=== PATIENT | female | born 1955 | race Caucasian/White ===

== ENCOUNTER 2021-08-17 06:51 | Day surgery (SDC) | payer MEDICARE ==
[2021-08-12 15:43] LABS: BASOPHILS % (AUTO) 1.1 % (0.0-5.0); EOSINOPHILS % (AUTO) 2.9 % (0.0-8.0); HEMATOCRIT 35.7 % (36-48); LYMPHOCYTES % (AUTO) 28.9 % (21.0-51.0); MEAN CORPUSCULAR HEMOGLOBIN 30.2 pg (27.0-33.0); MEAN CORPUSCULAR HGB CONC 33.3 g/dL (32.0-36.0); MEAN CORPUSCULAR VOLUME 90.6 fL (79-99); MONOCYTES % (AUTO) 6.4 % (3.0-13.0); NEUTROPHILS % (AUTO) 60.4 % (40.0-77.0); PLATELET COUNT (AUTO) 231 K/uL (130-400); RED BLOOD CELL COUNT(AUTO) 3.94 MIL/uL (4.00-5.50); RED CELL DISTRIBUTION WIDTH 12.2 % (11.0-15.5); WHITE BLOOD COUNT (AUTO) 8.7 K/uL (4.8-10.8)
[2021-08-12 15:44] LABS: APPEARANCE,URINE Clear (CLEAR); BILIRUBIN,URINE Negative (NEGATIVE); COLOR,URINE Yellow (YELLOW); GLUCOSE, URINE (UA) Negative (NEGATIVE); KETONES,URINE Negative (NEGATIVE); LEUKOCYTE ESTERASE ,URINE Negative (NEGATIVE); NITRATE,URINE Negative (NEGATIVE); OCCULT BLOOD,URINE Negative (NEGATIVE); PROTEIN,URINE Negative (NEGATIVE); UROBILINOGEN,URINE 0.2 mg/dL (0.2-1.0)
[2021-08-12 15:55] LABS: INR 1.01 (0.85-1.15)
[2021-08-12 15:57] LABS: PARTIAL THROMBOPLASTIN TIME 26.1 SEC (26.3-35.5)
[~2021-08-17] VITALS: Ht 157.5 cm; Wt 76.5 kg
[2021-08-17] VITALS (11 sets, daily range): BP systolic 110–150; BP diastolic 48–72
[~2021-08-17 06:51] MED LIST: ASPI-1443 PO; CALC-1125 PO; CLOP75TA14 PO; EVOL140S2 SQ; L.AC1CAP6 PO; NITR0.4T50 SL; OMEP40CA21 PO; [UNRECOGNIZED DRUG - CODE] NS; vitamin d PO
[2021-08-17] MEDS ORDERED: IOHEXOL 350 MG/ML 100ML INFUS..BTL IV ONE ×3 (07:41→08:59)
[2021-08-17] MEDS ORDERED: MIDAZOLAM HCL 1 MG/ML 2ML VIAL ONE (07:41)
[2021-08-17] MEDS ORDERED: NITROGLYCERIN 50MG VIAL ONE (07:41)
[2021-08-17] MEDS ORDERED: IOHEXOL-350 50ML VIAL IV ONE (07:41)
[2021-08-17] MEDS ORDERED: FENTANYL CITRATE PF 50 MCG/1 ML 2ML VIAL ONE (07:42)
[2021-08-17] MEDS ORDERED: LIDOCAINE HCL 400MG/20ML VIAL ONE (07:42)
[2021-08-17] MEDS ORDERED: SODIUM BICARB 50MEQ 50ML VIAL 50 ML ONE (08:09)
[2021-08-17] MEDS ORDERED: BIVALIRUDIN 250 MG/VIAL IV ONE (08:26)
[2021-08-17] MEDS: 0.9%NACL 1000ML 1,000 ML IV ONE (08:33)
[2021-08-17] MEDS ORDERED: HEPARIN 10,000 UNIT/10ML (1,000 UNIT/ML) VIAL ONE (09:03)
[2021-08-17] MEDS ORDERED: 0.9%NACL 1000ML 1,000 ML IV SCH (10:30)
[2021-08-17] MEDS: ACETAMINOPHEN 325 MG TAB ONE (13:16)
== END 2021-08-17 15:10 | disposition home or self-care (01) ==
LOC: DAH 06:51
PROVIDERS: ATTEND Internal Medicine Cardiovascular Disease
DX: I25.119 Atherosclerotic heart disease of native coronary artery with unspecified angina pectoris (principal); I25.729 Atherosclerosis of autologous artery coronary artery bypass graft(s) with unspecified angina pectoris; I25.82 Chronic total occlusion of coronary artery; I34.0 Nonrheumatic mitral (valve) insufficiency; K21.9 Gastro-esophageal reflux disease without esophagitis; I25.2 Old myocardial infarction; G47.33 Obstructive sleep apnea (adult) (pediatric); E78.5 Hyperlipidemia, unspecified; Z79.82 Long term (current) use of aspirin; Z79.01 Long term (current) use of anticoagulants; Z79.899 Other long term (current) drug therapy; Z98.890 Other specified postprocedural states; Z86.73 Personal history of transient ischemic attack (TIA), and cerebral infarction without residual deficits; Z95.1 Presence of aortocoronary bypass graft; Z95.5 Presence of coronary angioplasty implant and graft; Z90.49 Acquired absence of other specified parts of digestive tract; Z90.710 Acquired absence of both cervix and uterus; Z82.49 Family history of ischemic heart disease and other diseases of the circulatory system; Z72.89 Other problems related to lifestyle; Z88.8 Allergy status to other drugs, medicaments and biological substances; Z91.040 Latex allergy status
CPT/HCPCS: 36415; 71045; 80048; 81003; 85025; 85610; 85730; 92978; 92979; 93459; A4215; A4216; A4221; A4222; A4223 ×3; A4335; A4554; A4606; A4663; C1753 ×2; C1760 ×2; C1769 ×3; C1887; C1894 ×2; J1644 ×3; J2250; J3010; J3490 ×3; J7030; Q9965 ×3; Q9967 ×4; 93005; 99156; 99157; J0583

== ENCOUNTER → 2021-12-20 | Outpatient (CLI) | payer MEDICARE ==
[2021-12-20 12:28] LABS: BASOPHILS % (AUTO) 1.8 % (0.0-5.0); EOSINOPHILS % (AUTO) 5.7 % (0.0-8.0); LYMPHOCYTES % (AUTO) 28.8 % (21.0-51.0); MEAN CORPUSCULAR HEMOGLOBIN 28.7 pg (27.0-33.0); MEAN CORPUSCULAR HGB CONC 32.4 g/dL (32.0-36.0); MEAN CORPUSCULAR VOLUME 88.5 fL (79-99); MONOCYTES % (AUTO) 7.6 % (3.0-13.0); NEUTROPHILS % (AUTO) 55.8 % (40.0-77.0); PLATELET COUNT (AUTO) 246 K/uL (130-400); RED BLOOD CELL COUNT(AUTO) 4.18 MIL/uL (4.00-5.50); RED CELL DISTRIBUTION WIDTH 13.2 % (11.0-15.5); WHITE BLOOD COUNT (AUTO) 7.2 K/uL (4.8-10.8)
[2021-12-20 12:42] LABS: ALBUMIN 4.3 g/dL (3.5-5.0); BILIRUBIN,TOTAL 0.3 mg/dL (0.2-1.0); CREATININE 0.9 mg/dL (0.5-1.5); POTASSIUM 4.5 mmol/L (3.5-5.1); TOTAL PROTEIN, SERUM 7.7 g/dL (6.0-8.3)
== END | disposition home or self-care (01) ==
LOC: LAB 09:35
PROVIDERS: ATTEND Internal Medicine Cardiovascular Disease
DX: K59.00 Constipation, unspecified (principal); E78.5 Hyperlipidemia, unspecified; R06.00 Dyspnea, unspecified
CPT/HCPCS: 36415; 80053; 80061; 85025

== ENCOUNTER 2022-03-24 14:20 | Observation (INO) | payer MEDICARE ==
[~2022-03-24] VITALS: Ht 157.5 cm; Wt 67.8 kg
[2022-03-24 15:22] VITALS: BP 138/61
[2022-03-24 15:33] LABS: HEMATOCRIT 33.5 % (36-48); MEAN CORPUSCULAR HEMOGLOBIN 30.6 pg (27.0-33.0); MEAN CORPUSCULAR HGB CONC 33.7 g/dL (32.0-36.0); MEAN CORPUSCULAR VOLUME 90.8 fL (79-99); RED BLOOD CELL COUNT(AUTO) 3.69 MIL/uL (4.00-5.50); RED CELL DISTRIBUTION WIDTH 13.1 % (11.0-15.5); WHITE BLOOD COUNT (AUTO) 6.7 K/uL (4.8-10.8)
[2022-03-24 15:49] LABS: CREATININE 1.1 mg/dL (0.5-1.5); MAGNESIUM 2.2 mg/dL (1.80-2.40); POTASSIUM 3.9 mmol/L (3.5-5.1); TOTAL PROTEIN, SERUM 7.3 g/dL (6.0-8.3)
[2022-03-24 19:53] VITALS: BP 142/65
[2022-03-25] VITALS (14 sets, daily range): BP systolic 132–141; BP diastolic 57–69
[2022-03-25] MEDS ORDERED: FENTANYL CITRATE PF 50 MCG/1 ML 2ML VIAL ONE (07:08)
[2022-03-25] MEDS ORDERED: LIDOCAINE HCL-MPF 2% 10ML AMP IJ ONE (07:08)
[2022-03-25] MEDS ORDERED: IOHEXOL 350 MG/ML 100ML INFUS..BTL IV ONE ×2 (07:08→08:04)
[2022-03-25] MEDS ORDERED: MIDAZOLAM HCL 1 MG/ML 2ML VIAL ONE (07:08)
[2022-03-25] MEDS ORDERED: IOHEXOL-350 50ML VIAL IV ONE (07:08)
[2022-03-25] MEDS ORDERED: NITROGLYCERIN 50MG VIAL ONE (07:08)
[2022-03-25] MEDS ORDERED: SODIUM BICARB 50MEQ 50ML VIAL 50 ML ONE (07:43)
[2022-03-25] MEDS ORDERED: BIVALIRUDIN 250 MG/VIAL IV ONE (08:05)
[2022-03-25] MEDS ORDERED: LABETALOL 20MG SYG IV ONE ×3 (08:34→08:40)
[2022-03-25] MEDS ORDERED: CLOPIDOGREL 300MG TAB ONE (08:39)
[2022-03-25] MEDS ORDERED: ASPIRIN 325MG EC TAB PO ONE (08:39)
[2022-03-25] MEDS ORDERED: NITROGLYCERIN 4.1 GM SPRAY TL ONE (09:13)
[2022-03-25] MEDS ORDERED: 0.9% NACL 500ML IV.SOLN 500 ML IV SCH (09:30)
[2022-03-25] MEDS ORDERED: PHARMACY COMMUNICATION MISC SCH (10:30)
[2022-03-25] MEDS ORDERED: LIDO 2% VISC 30ML+MAG/AL/SIMETH 30ML+DICYCLOMINE 20MG 10ML PO SCH ×3 (11:00)
[2022-03-25] MEDS ORDERED: COMPOUND PO MISCELLANEOUS 1 EACH MISC MISC PRN (11:00)
[2022-03-25] MEDS ORDERED: BACLOFEN 10 MG TABLET PO SCH (13:56)
[2022-03-25] MEDS ORDERED: ACETAMINOPHEN 325 MG TAB PO SCH (14:00)
[2022-03-26] MEDS ORDERED: ASPIRIN 81MG CHEW TAB PO SCH (09:00)
[2022-03-26] MEDS ORDERED: PANTOPRAZOLE 40 MG TAB DR PO SCH (09:00)
[2022-03-26] MEDS ORDERED: CLOPIDOGREL 75MG TAB PO SCH (09:00)
== END 2022-03-25 20:54 | disposition home or self-care (01) ==
LOC: EDH 14:20 → INTOOBSV 14:21 → DIRECT 14:21 → 2AH 14:56
PROVIDERS: ADMIT Internal Medicine; ATTEND Internal Medicine
DX: I20.0 Unstable angina (principal); E78.5 Hyperlipidemia, unspecified; Z86.73 Personal history of transient ischemic attack (TIA), and cerebral infarction without residual deficits; K21.9 Gastro-esophageal reflux disease without esophagitis; I25.2 Old myocardial infarction; I51.7 Cardiomegaly; M47.815 Spondylosis without myelopathy or radiculopathy, thoracolumbar region; Z79.02 Long term (current) use of antithrombotics/antiplatelets; Z79.82 Long term (current) use of aspirin; Z90.710 Acquired absence of both cervix and uterus; Z95.1 Presence of aortocoronary bypass graft; Z79.899 Other long term (current) drug therapy
CPT/HCPCS: 83735; 84484 ×4; 80053; 85027; 36415; 71045; 92978; 93458; 93005; C1887 ×2; C1894 ×2; C1769; C1760; C1753; C1874; C1725 ×2; Q9965 ×2; G0378 ×6; J3010; J3490 ×2; J2250; J1644; J0583; Q9967 ×2; C9600; 99156; 99157

== ENCOUNTER → 2022-09-05 | Outpatient (CLI) | payer MEDICARE ==
[~2022-09-05] MED LIST changes: +CLOP-31 PO; -CLOP75TA14 PO
== END | disposition home or self-care (01) ==
LOC: RAH 16:15
PROVIDERS: ATTEND Internal Medicine
DX: J40 Bronchitis, not specified as acute or chronic (principal)
CPT/HCPCS: 71046

== ENCOUNTER → 2022-10-11 | Outpatient (CLI) | payer MEDICARE ==
[~2022-10-11] MED LIST changes: +CARAL PO; -EVOL140S2 SQ; +FAMO20TA8 PO; -L.AC1CAP6 PO; -NITR0.4T50 SL; -OMEP40CA21 PO; -[UNRECOGNIZED DRUG - CODE] NS
== END | disposition home or self-care (01) ==
LOC: RAH 11:10
PROVIDERS: ATTEND Internal Medicine
DX: J47.0 Bronchiectasis with acute lower respiratory infection (principal); J84.10 Pulmonary fibrosis, unspecified; I25.10 Atherosclerotic heart disease of native coronary artery without angina pectoris; N28.1 Cyst of kidney, acquired; M47.815 Spondylosis without myelopathy or radiculopathy, thoracolumbar region; J18.0 Bronchopneumonia, unspecified organism; R93.89 Abnormal findings on diagnostic imaging of other specified body structures
CPT/HCPCS: 71250

== ENCOUNTER → 2024-04-04 | Outpatient (CLI) | payer MEDICARE ==
[~2024-04-04] MED LIST changes: -CARAL PO; +CHOL100046 PO; +CIME200T10 PO; -CLOP-31 PO; +EVOL140S2 SQ; -FAMO20TA8 PO; +FEXO-263 PO; +FLUT16H NASAL; +LACT1CAP81 PO; +NITR0.4T50 SL; +OMEP40CA21 PO; -vitamin d PO
== END | disposition home or self-care (01) ==
LOC: RAH 09:51
PROVIDERS: ATTEND Surgery
DX: K21.9 Gastro-esophageal reflux disease without esophagitis (principal); K44.9 Diaphragmatic hernia without obstruction or gangrene
CPT/HCPCS: 74240

== ENCOUNTER → 2024-04-15 | Outpatient (CLI) | payer MEDICARE ==
[2024-04-15 13:03] LABS: BILIRUBIN,TOTAL 0.4 mg/dL (0.2-1.0); CREATININE 1.1 mg/dL (0.5-1.0); POTASSIUM 4.9 mmol/L (3.5-5.1); TOTAL PROTEIN, SERUM 7.1 g/dL (6.0-8.3)
== END | disposition home or self-care (01) ==
LOC: LAB 10:15
PROVIDERS: ATTEND Internal Medicine Cardiovascular Disease
DX: I25.10 Atherosclerotic heart disease of native coronary artery without angina pectoris (principal); E78.2 Mixed hyperlipidemia
CPT/HCPCS: 36415; 80053; 80061

== ENCOUNTER 2024-05-16 10:05 | Day surgery (SDC) | payer MEDICARE ==
[2024-05-16] VITALS (10 sets, daily range): BP systolic 111–143; BP diastolic 43–61; PULSE 60–67; RESP 15–17; TEMP 96.6–97.6
[~2024-05-16] VITALS: Ht 160 cm; Wt 58.5 kg
[2024-05-16] MEDS ORDERED: SIME80TA13 PO (11:02)
[2024-05-16] MEDS: 0.9%NACL 1000ML 1,000 ML IV ONE (11:05)
[2024-05-16] MEDS ORDERED: LIDOCAINE PF 100MG/5ML (2%) SYRINGE 5ML ONE (12:43)
[2024-05-16] MEDS ORDERED: proPOFol 10 MG/ML 20ML VIAL IV ONE (12:43)
--- NOTE | 2024-05-16 14:14 | NUR ---
Patient aox4. Denies c/o pain or discomfort. Voiced understanding to EGD precautions and follow up expectations. Ambulated to bathroom with standby assist. Voided large amount of clear urine. PIV discontinued with catheter tip intact. Full and complete Discharge instructions given to Patient and . All questions answered. W/C to POV with to Home.
== END 2024-05-16 14:20 | disposition home or self-care (01) ==
LOC: DAH 10:05 → ENDO 10:05
PROVIDERS: ATTEND Surgery
DX: K30 Functional dyspepsia (principal); K21.9 Gastro-esophageal reflux disease without esophagitis; K29.50 Unspecified chronic gastritis without bleeding; K44.9 Diaphragmatic hernia without obstruction or gangrene; R14.0 Abdominal distension (gaseous); K31.89 Other diseases of stomach and duodenum; I25.10 Atherosclerotic heart disease of native coronary artery without angina pectoris; E78.5 Hyperlipidemia, unspecified; K22.89 Other specified disease of esophagus; Z91.040 Latex allergy status; Z86.73 Personal history of transient ischemic attack (TIA), and cerebral infarction without residual deficits; Z90.710 Acquired absence of both cervix and uterus; Z95.1 Presence of aortocoronary bypass graft; Z90.49 Acquired absence of other specified parts of digestive tract; Z95.5 Presence of coronary angioplasty implant and graft; Z88.1 Allergy status to other antibiotic agents; Z98.890 Other specified postprocedural states; Z79.82 Long term (current) use of aspirin; Z79.899 Other long term (current) drug therapy
CPT/HCPCS: 43239; J7030 ×2; J2003; J2704; A4620; A4215 ×2; A4223; A4657; A4222; A4221; A4663; A4606; J3490

== ENCOUNTER → 2024-05-28 | Outpatient (CLI) | payer MEDICARE ==
[~2024-05-28] MED LIST changes: -ASPI-1443 PO; -CALC-1125 PO; -CHOL100046 PO; -CIME200T10 PO; -FEXO-263 PO; -FLUT16H NASAL; -LACT1CAP81 PO; -NITR0.4T50 SL; +SIME80TA13 PO
--- NOTE | 2024-05-29 09:50 | HMCIMG ---
MAMMO SCREENING BILATERAL HISTORY: Screening mammogram. COMPARISON: None TECHNIQUE: Bilateral screening mammogram with CAD was performed with craniocaudal and mediolateral oblique projections. FINDINGS: There are scattered areas of fibroglandular density. Bilateral dystrophic calcifications are seen. There is no evidence of a dominant mass, or suspicious microcalcification. There is no evidence of nipple retraction or skin thickening. IMPRESSION: 1. No dominant mass is seen to suggest a malignant process. Patient was entered into a reminder system with a target due date for their next mammogram. BI-RADS: CATEGORY 2: BENIGN FINDINGS Recommend monthly self breast exam as well as annual clinical examination. A negative x-ray should not delay biopsy if a dominant or clinically suspicious mass is present, since 8-10% of cancers are not identified by mammography. Dense breasts particularly, may obscure an underlying neoplasm. Some of these may be detected clinically and therefore, clinical examination is an essential part of breast evaluation.
== END | disposition home or self-care (01) ==
LOC: RAH 11:40
PROVIDERS: ATTEND Internal Medicine
DX: Z12.31 Encounter for screening mammogram for malignant neoplasm of breast (principal); R92.323 Mammographic fibroglandular density, bilateral breasts; R92.1 Mammographic calcification found on diagnostic imaging of breast
CPT/HCPCS: 77067

== ENCOUNTER → 2024-10-14 | Outpatient (CLI) | payer MEDICARE ==
[2024-10-14 12:46] LABS: ALBUMIN 4.3 g/dL (3.5-5.0); BILIRUBIN,TOTAL 0.4 mg/dL (0.2-1.0); CREATININE 1.2 mg/dL (0.5-1.0); POTASSIUM 4.1 mmol/L (3.5-5.1); TOTAL PROTEIN, SERUM 7.6 g/dL (6.0-8.3)
== END | disposition home or self-care (01) ==
LOC: LAB 11:17
PROVIDERS: ATTEND Internal Medicine Cardiovascular Disease
DX: I10 Essential (primary) hypertension (principal); E78.2 Mixed hyperlipidemia
CPT/HCPCS: 36415; 80053; 80061

== ENCOUNTER → 2025-05-30 | Outpatient (CLI) | payer MEDICARE | END | disposition home or self-care (01) | LOC: RAH 13:22 | PROVIDERS: ATTEND Internal Medicine | DX: Z12.31 Encounter for screening mammogram for malignant neoplasm of breast (principal) | CPT/HCPCS: 77067 ==